=== PATIENT | female | born 1995 | race Caucasian/White ===

== ENCOUNTER 2020-09-30 13:30 | Emergency (ER) | payer OTHER ==
[2020-09-30 15:28] LABS: CORONAVIRUS 2019 SARS-COV-2 NEGATIVE (NEGATIVE); INFLUENZA A NAA NEGATIVE (NEGATIVE)
[2020-09-30] MEDS ORDERED: MEDROL 4MG DOSEP4 MG PO (15:46)
== END 2020-09-30 15:54 | disposition home or self-care (01) ==
LOC: FER 13:30
PROVIDERS: Nurse Practitioner Family
DX: J06.9 Acute upper respiratory infection, unspecified (principal); Z20.822 Contact with and (suspected) exposure to COVID-19
CPT/HCPCS: 87880; 99283; U0002

== ENCOUNTER 2021-05-19 15:48 | Emergency (ER) | payer OTHER ==
[~2021-05-19 15:48] MED LIST: MEDROL 4MG DOSEP4 MG PO
[2021-05-19 20:08] LABS: BASOPHIL 0.3 % (0-2); EOSINOPHIL 0.5 % (0-5); HCT 32.6 % (37.0-47.0); HGB 10.7 g/dl (12.5-16.0); LYMPHOCYTE 21.8 % (15-48); MCH 29.3 pg (25.0-31.0); MCHC 32.8 g/dL (32.0-36.0); MCV 89.3 fL (78.0-100.0); MONOCYTE 6.8 % (0-12); MPV 12.8 fL (6.0-9.5); NEUTROPHIL 70.3 % (41-80); NRBC 0; PLT 126 K/uL (150-400); RBC 3.65 M/uL (4.20-5.40); RDW 12.1 % (11.5-14.0); WBC 8.7 K/uL (4.0-10.5)
[2021-05-19 20:19] LABS: BUN/CREAT RATIO (CALC) 18.8 RATIO; CREATININE 0.48 mg/dL (0.51-0.95); POTASSIUM 3.5 mmol/L (3.5-5.1)
[2021-05-19 21:12] LABS: CORONAVIRUS 2019 SARS-COV-2 NEGATIVE (NEGATIVE); INFLUENZA A NAA NEGATIVE (NEGATIVE)
[2021-05-19] MEDS ORDERED: VENTOLIN HFA IN18 GM INH (22:21)
== END 2021-05-19 22:40 | disposition home or self-care (01) ==
LOC: FER 15:48
PROVIDERS: Internal Medicine
DX: B34.9 Viral infection, unspecified (principal); F17.210 Nicotine dependence, cigarettes, uncomplicated; Z20.822 Contact with and (suspected) exposure to COVID-19
CPT/HCPCS: 36415; 71045; 80048; 84145; 85025; U0002